=== PATIENT | male | born 1955 | race Caucasian/White ===

== ENCOUNTER 2017-02-14 10:32 | Emergency (ER) | payer BC, MEDICARE, OTHER, SELFPAY ==
[~2017-02-14] VITALS: Ht 185.4 cm; Wt 54.1 kg
[2017-02-14 10:43] VITALS: BP 145/89
[2017-02-14] MEDS ORDERED: HYDR2TAB29 PO (11:12)
[2017-02-14] MEDS ORDERED: SERT25TA PO (11:12)
[2017-02-14] MEDS ORDERED: LOVA10TA PO (11:12)
== END 2017-02-14 11:25 | disposition home or self-care (01) ==
LOC: ED 11:15
DX: M19.042 Primary osteoarthritis, left hand (principal); M19.041 Primary osteoarthritis, right hand
CPT/HCPCS: 99283

== ENCOUNTER 2017-10-14 08:18 | Emergency (ER) | payer MEDICARE ==
[~2017-10-14] VITALS: Ht 185.4 cm; Wt 63.2 kg
[~2017-10-14 08:18] MED LIST: HYDR2TAB29 PO; LOVA10TA PO; SERT25TA PO
[2017-10-14] MEDS ORDERED: METO25TA35 PO (09:28)
[2017-10-14] MEDS ORDERED: ONDANSETRON ODT 4 MG ONE (10:17)
[2017-10-14 10:29] LABS: MEAN CORPUSCULAR HEMOGLOBIN 31.5 pg (27.5-34.5); MEAN CORPUSCULAR HGB CONC 33.8 g/dL (33.2-36.2); PLATELET COUNT 196 x10^3/uL (130-400); RED BLOOD COUNT 5.33 x10^6/uL (4.38-5.82); RED CELL DISTRIBUTION WIDTH 13.8 % (9.4-14.8)
[2017-10-14] MEDS ORDERED: SODIUM CHLORIDE 0.9% 1,000ML IVBOLUS ONE (10:30)
[2017-10-14] MEDS ORDERED: ONDANSETRON ODT 4 MG PO ONE (10:30)
[2017-10-14] MEDS ORDERED: SODIUM CHLORIDE FLUSH 10ML SYR IVF ONE (10:30)
[2017-10-14 10:41] LABS: ALANINE AMINOTRANSFERASE 35 U/L (12-78); ALBUMIN 3.9 g/dL (3.4-5.0); ANION GAP 8 mmol/L (5-15); CALCIUM 9.1 mg/dL (8.5-10.1); CHLORIDE 106 mmol/L (98-107); CREATININE 1.15 mg/dL (0.7-1.3)
[2017-10-14 10:44] LABS: ALKALINE PHOSPHATASE 65 U/L (45-117); BILIRUBIN,TOTAL 0.3 mg/dL (0.2-1.0); TOTAL PROTEIN 7.6 g/dL (6.4-8.2)
[2017-10-14 11:01] LABS: MICROSCOPIC INDICATED
[2017-10-14 11:04] LABS: CULTURE INDICATED? YES
[2017-10-14 11:11] LABS: BASOPHILS # (AUTO) 0.02 x10^3/uL (0-0.1); BASOPHILS % (AUTO) 0 % (0-1); EOSINOPHILS # (AUTO) 0.13 x10^3/uL (0-0.4); EOSINOPHILS % (AUTO) 1 % (1-7); LYMPHOCYTES # (AUTO) 0.66 x10^3/uL (1-3.4); LYMPHOCYTES % (AUTO) 3 % (22-44); MD SCAN; MONOCYTES # (AUTO) 1.33 x10^3/uL (0.2-0.8); MONOCYTES % (AUTO) 7 % (2-9); NEUTROPHILS % (AUTO) 89 % (42-75)
[2017-10-14 11:34] VITALS: BP 114/74
== END 2017-10-14 11:39 | disposition home or self-care (01) ==
LOC: ED 10:28
DX: K52.9 Noninfective gastroenteritis and colitis, unspecified (principal); F41.1 Generalized anxiety disorder; D72.829 Elevated white blood cell count, unspecified; I10 Essential (primary) hypertension; E78.5 Hyperlipidemia, unspecified; R82.99 Other abnormal findings in urine
CPT/HCPCS: 36415; 74021; 80053; 81001; 83690; 85025; 87086; 93005; 99285; J7030; Q0162

== ENCOUNTER 2018-06-10 03:05 | Inpatient (IN) | payer MEDICARE ==
[~2018-06-10] VITALS: Ht 185.4 cm; Wt 61.1 kg
[~2018-06-10 03:05] MED LIST changes: +METO25TA35 PO
[2018-06-10] MEDS ORDERED: MIRT15TA4 PO (03:41)
[2018-06-10] MEDS ORDERED: DIAZ5TAB4 PO ×2 (03:41→09:47)
[2018-06-10] MEDS ORDERED: SERT50TA5 PO (03:41)
[2018-06-10] MEDS ORDERED: LOVA20TA2 PO (03:41)
[2018-06-10] MEDS ORDERED: MORPHINE SULFATE 4 MG/ML, 1ML ONE (04:15)
[2018-06-10] MEDS ORDERED: ONDANSETRON 2MG/ML, 2ML ONE (04:15)
[2018-06-10] MEDS ORDERED: ONDANSETRON 2MG/ML, 2ML IVPush ONE (04:30)
[2018-06-10] MEDS ORDERED: MORPHINE SULFATE 4 MG/ML, 1ML IVPush PRN ×2 (04:30→07:30)
[2018-06-10 04:48] LABS: BASOPHILS # (AUTO) 0.02 x10^3/uL (0-0.1); BASOPHILS % (AUTO) 0 % (0-1); EOSINOPHILS # (AUTO) 0.11 x10^3/uL (0-0.4); EOSINOPHILS % (AUTO) 1 % (1-7); LYMPHOCYTES # (AUTO) 0.76 x10^3/uL (1-3.4); LYMPHOCYTES % (AUTO) 6 % (22-44); MD NO; MEAN CORPUSCULAR HEMOGLOBIN 31.5 pg (27.5-34.5); MEAN CORPUSCULAR HGB CONC 33.8 g/dL (33.2-36.2); MEAN CORPUSCULAR VOLUME 93.1 fL (81-97); MEAN PLATELET VOLUME 8.7 fL (7.4-10.4); MONOCYTES % (AUTO) 2 % (2-9); NEUTROPHILS # (AUTO) 11.25 x10^3/uL (1.8-6.8); NEUTROPHILS % (AUTO) 90 % (42-75); PLATELET COUNT 140 x10^3/uL (130-400); RED BLOOD COUNT 5.93 x10^6/uL (4.38-5.82); RED CELL DISTRIBUTION WIDTH 14.6 % (9.4-14.8)
[2018-06-10 04:55] LABS: ALANINE AMINOTRANSFERASE 20 U/L (12-78); ALBUMIN 3.6 g/dL (3.4-5.0); ANION GAP 10 mmol/L (5-15); CALCIUM 9.3 mg/dL (8.5-10.1); CHLORIDE 106 mmol/L (98-107); CREATININE 1.24 mg/dL (0.7-1.3)
[2018-06-10 04:57] LABS: ALKALINE PHOSPHATASE 68 U/L (45-117); BILIRUBIN,TOTAL 0.6 mg/dL (0.2-1.0); TOTAL PROTEIN 7.2 g/dL (6.4-8.2)
[2018-06-10] MEDS ORDERED: OMNIPAQUE 300 MG/ML, 10ML VIAL ONE (05:20)
[2018-06-10] MEDS ORDERED: SODIUM CHLORIDE 0.9% 1,000 ML IV ONE (07:20)
[2018-06-10] MEDS ORDERED: METRONIDAZOLE PMX 500MG/100ML 100 ML IV ONE (07:30)
[2018-06-10] MEDS ORDERED: CIPROFLOXACIN/PMX 400MG/200ML 200 ML IV ONE (07:30)
[2018-06-10] MEDS ORDERED: ONDANSETRON 2MG/ML, 2ML IVPush PRN ×2 (07:30→09:30)
[2018-06-10] MEDS ORDERED: CIPROFLOXACIN/PMX 400MG/200ML 0 ML ONE (07:49)
[2018-06-10 08:05] LABS: CLOSTRIDIUM DIFFICILE ANTIGEN NEGATIVE; CLOSTRIDIUM DIFFICILE TOXIN NEGATIVE (Negative)
[2018-06-10 08:30] VITALS: BP 139/80
[2018-06-10] MEDS ORDERED: ACETAMINOPHEN 325 MG TABLET PO PRN (09:30)
[2018-06-10] MEDS ORDERED: morphine SULFATE 10 MG/ML, 1ML IVPush PRN (09:30)
[2018-06-10] MEDS ORDERED: OXYcodone IR 5MG TABLET PO PRN (09:30)
[2018-06-10] MEDS ORDERED: LABETALOL 5MG/ML, 20ML IVPush PRN (09:30)
[2018-06-10] MEDS ORDERED: SODIUM CHLORIDE 0.9% 1,000 ML IV SCH (09:30)
[2018-06-10] MEDS ORDERED: METO50TA6 PO (09:45)
[2018-06-10] MEDS ORDERED: LOVA40TA2 PO (09:48)
[2018-06-10] MEDS ORDERED: SERT100T5 PO (09:48)
[2018-06-10 12:46] LABS: HEMOGLOBIN A1C 5.7 % (4.2-6.3)
[2018-06-10 14:30] VITALS: BP 111/72
[2018-06-10] MEDS: METRONIDAZOLE PMX 500MG/100ML 100 ML IV SCH (16:11)
[2018-06-10 19:15] VITALS: BP 103/71
[2018-06-10] MEDS: CIPROFLOXACIN/PMX 400MG/200ML 200 ML IV SCH (20:25)
[2018-06-10] MEDS: DIAZEPAM 5 MG TABLET PO SCH (20:32)
[2018-06-10] MEDS: SERTRALINE 50MG TABLET PO SCH (20:32)
[2018-06-10] MEDS: MIRTAZAPINE 15 MG TABLET PO SCH (20:32)
[2018-06-11] MEDS: METRONIDAZOLE PMX 500MG/100ML 100 ML IV SCH ×4 (00:34→23:51)
[2018-06-11 01:25] VITALS: BP 131/66
[2018-06-11] MEDS: ALUMINUM/MAG/SIMETHICONE 30 ML UDC PO PRN ×2 (04:11→17:49)
[2018-06-11 06:05] LABS: MEAN CORPUSCULAR HEMOGLOBIN 31.4 pg (27.5-34.5); MEAN CORPUSCULAR HGB CONC 33.7 g/dL (33.2-36.2); MEAN CORPUSCULAR VOLUME 93.2 fL (81-97); MEAN PLATELET VOLUME 9.3 fL (7.4-10.4); PLATELET COUNT 155 x10^3/uL (130-400); RED BLOOD COUNT 5.39 x10^6/uL (4.38-5.82); RED CELL DISTRIBUTION WIDTH 14.6 % (9.4-14.8)
[2018-06-11 06:15] LABS: ANION GAP 9 mmol/L (5-15); CALCIUM 8.2 mg/dL (8.5-10.1); CHLORIDE 102 mmol/L (98-107); CREATININE 1.09 mg/dL (0.7-1.3)
[2018-06-11 06:29] LABS: BASOPHILS # (AUTO) 0.01 x10^3/uL (0-0.1); BASOPHILS % (AUTO) 0 % (0-1); EOSINOPHILS # (AUTO) 0.01 x10^3/uL (0-0.4); EOSINOPHILS % (AUTO) 0 % (1-7); LYMPHOCYTES # (AUTO) 0.97 x10^3/uL (1-3.4); LYMPHOCYTES % (AUTO) 5 % (22-44); MD SCAN; MONOCYTES % (AUTO) 12 % (2-9); NEUTROPHILS # (AUTO) 14.98 x10^3/uL (1.8-6.8); NEUTROPHILS % (AUTO) 82 % (42-75)
[2018-06-11 07:42] VITALS: BP 110/73
[2018-06-11] MEDS ORDERED: SERTRALINE 50MG TABLET PO SCH (09:00)
[2018-06-11] MEDS ORDERED: MIRTAZAPINE 15 MG TABLET PO SCH (09:00)
[2018-06-11 10:09] VITALS: BP 121/75
[2018-06-11] MEDS: DIAZEPAM 5 MG TABLET PO SCH ×3 (10:12→21:01)
[2018-06-11] MEDS: SODIUM CHLORIDE 0.9% 1,000 ML IV SCH ×2 (10:12→20:00)
[2018-06-11] MEDS: METOPROLOL TARTRATE 50 MG TABLET PO SCH (10:12)
[2018-06-11] MEDS: LOVASTATIN 40 MG TABLET PO SCH (10:12)
[2018-06-11] MEDS: CIPROFLOXACIN/PMX 400MG/200ML 200 ML IV SCH ×2 (10:48→22:06)
[2018-06-11 11:01] LABS: MICROSCOPIC NOT IND
[2018-06-11 11:04] LABS: CULTURE INDICATED? NO
[2018-06-11 13:18] VITALS: BP 122/70
[2018-06-11 19:22] VITALS: BP 116/76
[2018-06-11] MEDS: MIRTAZAPINE 15 MG TABLET PO SCH (21:01)
[2018-06-11] MEDS: SERTRALINE 50MG TABLET PO SCH (21:02)
[2018-06-12 01:42] VITALS: BP 135/80
[2018-06-12] MEDS: SODIUM CHLORIDE 0.9% 1,000 ML IV SCH (05:00)
[2018-06-12 05:01] LABS: MEAN CORPUSCULAR HEMOGLOBIN 31.7 pg (27.5-34.5); MEAN CORPUSCULAR HGB CONC 34.1 g/dL (33.2-36.2); MEAN CORPUSCULAR VOLUME 93.1 fL (81-97); MEAN PLATELET VOLUME 8.7 fL (7.4-10.4); PLATELET COUNT 148 x10^3/uL (130-400); RED BLOOD COUNT 5.05 x10^6/uL (4.38-5.82)
[2018-06-12 05:07] LABS: ANION GAP 11 mmol/L (5-15); CALCIUM 7.9 mg/dL (8.5-10.1); CHLORIDE 105 mmol/L (98-107); CREATININE 0.91 mg/dL (0.7-1.3)
[2018-06-12 06:24] LABS: BASOPHILS # (AUTO) 0.03 x10^3/uL (0-0.1); BASOPHILS % (AUTO) 0 % (0-1); EOSINOPHILS # (AUTO) 0.03 x10^3/uL (0-0.4); EOSINOPHILS % (AUTO) 0 % (1-7); LYMPHOCYTES % (AUTO) 8 % (22-44); MD SCAN; MONOCYTES # (AUTO) 1.65 x10^3/uL (0.2-0.8); MONOCYTES % (AUTO) 12 % (2-9); NEUTROPHILS # (AUTO) 11.02 x10^3/uL (1.8-6.8); NEUTROPHILS % (AUTO) 80 % (42-75)
[2018-06-12 06:56] VITALS: BP 131/72
[2018-06-12] MEDS: ALUMINUM/MAG/SIMETHICONE 30 ML UDC PO PRN (07:27)
[2018-06-12] MEDS: METRONIDAZOLE PMX 500MG/100ML 100 ML IV SCH (07:27)
[2018-06-12] MEDS: LOVASTATIN 40 MG TABLET PO SCH (07:28)
[2018-06-12] MEDS: DIAZEPAM 5 MG TABLET PO SCH (07:28)
[2018-06-12] MEDS: METOPROLOL TARTRATE 50 MG TABLET PO SCH (07:28)
[2018-06-12] MEDS: CIPROFLOXACIN/PMX 400MG/200ML 200 ML IV SCH (10:40)
[2018-06-12 12:28] VITALS: BP 123/73
[2018-06-12] MEDS ORDERED: METO25TA35 PO (14:15)
[2018-06-12] MEDS ORDERED: CIPR500T87 PO (14:15)
[2018-06-12] MEDS ORDERED: METR500T PO (14:15)
== END 2018-06-12 17:10 | disposition home or self-care (01) | DRG 377 ==
LOC: ED 03:27 → EDIP 07:20 → 3NE 07:59
PROVIDERS: ADMIT Student in an Organized Health Care Education/Training Program; ATTEND Student in an Organized Health Care Education/Training Program
DX: K57.91 Diverticulosis of intestine, part unspecified, without perforation or abscess with bleeding (principal); R65.11 Systemic inflammatory response syndrome (SIRS) of non-infectious origin with acute organ dysfunction; K51.018 Ulcerative (chronic) pancolitis with other complication; I10 Essential (primary) hypertension; F32.9 Major depressive disorder, single episode, unspecified; E78.5 Hyperlipidemia, unspecified; E86.0 Dehydration; F41.1 Generalized anxiety disorder; Z86.59 Personal history of other mental and behavioral disorders; Z86.010 Personal history of colon polyps; Z85.828 Personal history of other malignant neoplasm of skin; Z80.0 Family history of malignant neoplasm of digestive organs; Z79.899 Other long term (current) drug therapy
CPT/HCPCS: 36415; 74177; 80048; 80053; 81003; 83036; 83690; 83735; 84100; 85014; 85018; 85025; 87046; 87324; 89055; 96374; 96375; 99285; G0378; J0744; J2405; Q9967; J7030

== ENCOUNTER 2018-11-25 14:26 | Emergency (ER) | payer MEDICARE ==
[~2018-11-25] VITALS: Ht 185.4 cm; Wt 64.9 kg
[~2018-11-25 14:26] MED LIST changes: +CIPR500T87 PO; +DIAZ5TAB4 PO; +LOVA20TA2 PO; +LOVA40TA2 PO; +METO50TA6 PO; +METR500T PO; +MIRT15TA4 PO; +SERT100T32 PO; +SERT50TA28 PO
[2018-11-25 14:27] VITALS: BP 180/85
--- NOTE | 2018-11-25 15:12 | NUR ---
pt given dc instructions and script, educated regarding rx for valium. triage bp reviewed by SYLVIA Brizuela, per EDPA no repeat BP needed. pt a&o, resps even and unlabored. nadn. pt amb to dc desk with steady gait. all questions answered.
== END 2018-11-25 15:13 | disposition home or self-care (01) ==
LOC: ED 14:57
DX: F41.1 Generalized anxiety disorder (principal); Z76.0 Encounter for issue of repeat prescription; I10 Essential (primary) hypertension; F32.9 Major depressive disorder, single episode, unspecified; E78.5 Hyperlipidemia, unspecified; Z90.89 Acquired absence of other organs
CPT/HCPCS: 99283